=== PATIENT | female | born 1950 | race Caucasian/White ===

== ENCOUNTER 2016-04-26 20:19 | Emergency (ER) | payer MEDICARE ==
[~2016-04-26] VITALS: Ht 152.4 cm; Wt 68.0 kg
[2016-04-26 20:24] VITALS: BP 178/82; PULSE 77; RESP 18; TEMP 97.5; O2SAT 100
[2016-04-26 20:37] VITALS: O2SAT 100
[2016-04-26 20:57] LABS: BASOPHIL % 0.3 % (0.0-2.0); EOSINOPHIL # 0.4 TH/MM3 (0-0.4); EOSINOPHIL % 4.7 % (0.0-4.0); HEMATOCRIT 41.5 % (35.0-46.0); HEMO FLAGS DIFF FINAL; LYMPHOCYTE # 2.8 TH/MM3 (1.0-4.8); MEAN CELL VOLUME 89.4 FL (80.0-100.0); MEAN CORPUSCULAR HEMOGLOBIN 31.3 PG (27.0-34.0); MONO % 3.5 % (0.0-8.0); NEUT % 58.5 % (16.0-70.0); PLATELET COUNT 214 TH/MM3 (150-450); RED BLOOD COUNT 4.64 MIL/MM3 (4.00-5.30); RED CELL DISTRIBUTION WIDTH 12.5 % (11.6-17.2); WHITE BLOOD COUNT 8.6 TH/MM3 (4.0-11.0)
[2016-04-26] MEDS ORDERED: DIPHTH/TETANUS/ACEL PERTUSSIS (BOOSTER) 0.5 ML VIAL/PFS IM ONE (21:00)
[2016-04-26] MEDS ORDERED: SODIUM CHLOR 0.9% 1000 ML INJ 1,000 ML IV SCH (21:00)
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
[2016-04-26 21:09] LABS: AMPHETAMINE, URINE NEG (NEG); APTT (PATIENT) 28.3 SEC (24.3-30.1); BARBITURATES, URINE NEG (NEG); COCAINE, URINE NEG (NEG); PROTHROMBIN TIME - PATIENT 10.6 SEC (9.8-11.6)
[2016-04-26 21:12] LABS: BLOOD, URINE NEG (NEG); GLUCOSE,URINE NEG (NEG); KETONE, URINE NEG (NEG); NITRITE,URINE NEG (NEG); SQUAMOUS EPITHELIAL CELL URINE <1 /hpf (0-5); URINE COLOR COLORLESS (YELLW/STRAW)
[2016-04-26 21:14] LABS: COMMENT (UR) CULT NOT INDICATED; CULTURE IF INDICATED CULT NOT INDICATED
[2016-04-26 21:20] LABS: ANION GAP 8 MEQ/L (5-15)
[2016-04-26 21:23] LABS: ALKALINE PHOSPHATASE 81 U/L (45-117); ALT (GPT) 24 U/L (10-53); AST (GOT) 15 U/L (15-37); BICARBONATE 28.4 MEQ/L (21.0-32.0); BLOOD UREA NITROGEN 7 MG/DL (7-18); CHLORIDE 106 MEQ/L (98-107); GLOMERULAR FILTRATION RATE 83 ML/MIN (>89); MAGNESIUM 2.1 MG/DL (1.5-2.5); POTASSIUM 3.7 MEQ/L (3.5-5.1); SODIUM (NA) 142 MEQ/L (136-145); TOTAL BILIRUBIN ADULT 0.3 MG/DL (0.2-1.0)
--- NOTE | 2016-04-27 00:51 | RADRPT ---
EXAM DATE/TIME: 04/27/2016 00:44 [facility] COMPARISON: No previous studies available for comparison. INDICATIONS : Trauma. Fall. RADIATION DOSE: 32.22 CTDIvol (mGy) MEDICAL HISTORY : None SURGICAL HISTORY : None. ENCOUNTER: Initial ACUITY: 1 day PAIN SCALE: 7/10 LOCATION: cranial TECHNIQUE: Multiple contiguous axial images were obtained of the head. Using automated exposure control and adj ustment of the mA and/or kV according to patient size, radiation dose was kept as low as reasonably a chievable to obtain optimal diagnostic quality images. FINDINGS: CEREBRUM: The ventricles are normal for age. No evidence of midline shift, mass lesion, hemorrhage or acute in farction. No extra-axial fluid collections are seen. POSTERIOR FOSSA: The cerebellum and brainstem are intact. The 4th ventricle is midline. The cerebellopontine angle i s unremarkable. EXTRACRANIAL: The visualized portion of the orbits is intact. SKULL: Large cephalohematoma over left frontal bone extending inferiorly into the pre-septal space. The calv aria is intact. No evidence of skull fracture. CONCLUSION: 1. Large left-sided cephalohematoma with preseptal extension. 2. No acute intracranial process, trauma or fracture Jarad Alvarez MD on April 27, 2016 at 0:48 Board Certified Radiologist. This report was verified electronically.
--- NOTE | 2016-04-27 01:03 | RADRPT ---
EXAM DATE/TIME: 04/27/2016 00:44 [facility] COMPARISON: No previous studies available for comparison. INDICATIONS : Trauma. Fall. RADIATION DOSE: 20.92 CTDIvol (mGy) MEDICAL HISTORY : None SURGICAL HISTORY : None. ENCOUNTER: Initial ACUITY: 1 day PAIN SCALE: 0/10 LOCATION: neck TECHNIQUE: Volumetric scanning of the cervical spine was performed. Multiplanar reconstructions in the sagittal, coronal and oblique axial planes were performed. Using automated exposure control and adjustment o f the mA and/or kV according to patient size, radiation dose was kept as low as reasonably achievable to obtain optimal diagnostic quality images. FINDINGS: Sagittal and coronal reconstruction showing minimal grade 1 anterolisthesis of C2 on 3. Degenerative disc disease most prominent at C5-6 is some uncovertebral ridging. Vertebral body heights are maintai tk without fracture. Spinal canal is patent throughout. Detailed axial images as follows: C2-C3: Mild right facet hypertrophy. Spinal canal and neural foramina are patent. C3-C4: The bony spinal canal is normal in size. No evidence of disc bulge or herniation. The neural forami na are bilaterally patent. C4-C5: The bony spinal canal is normal in size. No evidence of disc bulge or herniation. The neural forami na are bilaterally patent. C5-C6: Uncovertebral ridging with a left posterolateral component encroaching on the neural foramina. This m ay be sufficient to compromise the left C6 nerve root. Spinal canal and right neural foramina are tony quate C6-C7: The bony spinal canal is normal in size. No evidence of disc bulge or herniation. The neural forami na are bilaterally patent. C7-T1: The bony spinal canal is normal in size. No evidence of disc bulge or herniation. The neural forami na are bilaterally patent. CONCLUSION: 1. Multiple degenerative disc disease most prominent at C5-6 with some uncovertebral ridging. 2. There is some foraminal narrowing leftward at C5-6 secondary to the ridging which may be severe en ough to compromised the left C6 nerve root. Spinal canal and neural foramina are adequate at all shana ining levels. 3. No acute fracture. Jarad Alvarez MD on April 27, 2016 at 0:57 Board Certified Radiologist. This report was verified electronically.
--- NOTE | 2016-04-27 01:05 | RADRPT ---
EXAM DATE/TIME: 04/27/2016 00:44 [facility] COMPARISON: No previous studies available for comparison. INDICATIONS : Trauma. Fall. RADIATION DOSE: 40.50 CTDIvol (mGy) MEDICAL HISTORY : None SURGICAL HISTORY : None. ENCOUNTER: Initial ACUITY: 1 day PAIN SCORE: 8/10 LOCATION: Left facial TECHNIQUE: Volumetric scanning of the facial bones was performed. Using automated exposure control and adjustme nt of the mA and/or kV according to patient size, radiation dose was kept as low as reasonably achiev able to obtain optimal diagnostic quality images. FINDINGS: ORBITS: The orbital and infraorbital osseous structures are intact. The retroconal structures have a normal configuration. No radiopaque foreign bodies are seen. NASAL BONE: The nasal bone and maxillary spine are intact ZYGOMATIC ARCHES: Symmetric without evidence of fracture. SINUSES: The maxillary, ethmoid and frontal sinuses are intact. No air-fluid levels seen. NASAL CAVITY: The nasal septum is intact and midline. The lacrimal ducts are intact. SOFT TISSUES: Large cephalhematoma over the left frontal bone with inferior extension over the left preseptal space . No associated fracture. The left globe is intact. INTRACRANIAL: No intracranial air seen. CRIBIFORM PLATE: Grossly intact. CONCLUSION: 1. Large left cephalhematoma over the left frontal bone with inferior extension to the preseptal spac e. 2. Left globe is intact. No associated facial fracture. Jarad Alvarez MD on April 27, 2016 at 1:02 Board Certified Radiologist. This report was verified electronically.
[2016-04-27] MEDS ORDERED: HYDR-3533 PO (01:21)
[2016-04-27] MEDS ORDERED: ACETAMINOPHEN 325 MG TAB PO ONE (01:30)
--- NOTE | 2016-04-27 02:56 | RADRPT ---
EXAM DATE/TIME: 04/27/2016 02:47 [facility] COMPARISON: No previous studies available for comparison. INDICATIONS : Left chest pain post fall. MEDICAL HISTORY : None. SURGICAL HISTORY : None. ENCOUNTER: Initial ACUITY: 1 day PAIN SCORE: 6/10 LOCATION: Left chest FINDINGS: A single view of the chest demonstrates the lungs to be symmetrically aerated with a well marginated density medially in the right base, possibly representing a prominent epicardial fat-pad or pericardi al cyst. Lungs are otherwise clear heart size is normal. Osseous structures are intact. CONCLUSION: 1. Well marginated density in the right cardiophrenic angle. Findings are overtly benign and may repr esent a pericardial cyst or prominent epicardial fat-pad. 2. Lungs are otherwise clear. No pneumothorax or fracture. Jarad Alvarez MD on April 27, 2016 at 2:52 Board Certified Radiologist. This report was verified electronically.
== END 2016-04-27 06:25 | disposition home or self-care (01) ==
LOC: NEPC 20:19 → NEPA 04-27 06:25
DX: S06.9X9A Unspecified intracranial injury with loss of consciousness of unspecified duration, initial encounter (principal); S00.83XA Contusion of other part of head, initial encounter; W18.30XA Fall on same level, unspecified, initial encounter; Y93.01 Activity, walking, marching and hiking; Y92.59 Other trade areas as the place of occurrence of the external cause
CPT/HCPCS: 70450; 70486; 71010; 72125; 80053; 80307; 81001; 83735; 85025; 85610; 85730; 99285; L0150